=== PATIENT | female | born 1940 | race Caucasian/White ===

== ENCOUNTER → 2018-09-04 | Day surgery (SDC) | payer MEDICARE, BC ==
[~2018-09-04] MED LIST: ALPRAZolam 0.5 MG Tab.DIS (ODT) PO ONE; ALPRAZolam ODT 0.25 MG Tab ONE; Lidocaine 1% 20 ML MDV ONE
[2018-09-04 15:27] VITALS: BP 135/83
--- NOTE | 2018-09-10 10:10 | OR ---
DATE OF OPERATION: 09/04/2018 PREOPERATIVE DIAGNOSIS: SAPHENOFEMORAL INSUFFICIENCY WITH PAINFUL VARICOSITIES. POSTOPERATIVE DIAGNOSIS: SAPHENOFEMORAL INSUFFICIENCY WITH PAINFUL VARICOSITIES. SURGEON: Sagar Brown MD PROCEDURE: PAULINE, RIGHT GSV. ANESTHESIA: Local with tumescent. COMPLICATIONS: None. SPECIMEN: None. FINDINGS: Successful PAULINE, right GSV. INDICATIONS: The patient has documented saphenofemoral insufficiency. She has been having progressive symptomatic varicose veins in her lower extremity, and she elects to proceed with endovenous ablation. DESCRIPTION OF PROCEDURE: The patient was brought to the operating room suite and the insufficient saphenous vein mapped via ultrasound and diagrammed along the overlying skin along with the access site just below the knee. The entire limb was prepped and draped in sterile fashion. The patient was placed in reverse Trendelenburg position. Local anesthesia was instilled over the access site. The vein was accessed using ultrasound guidance and the Seldinger technique with a guidewire introduced through a needle. After the needle was removed, a small incision was made with an 11 blade scalpel. A 6-[place] sheath was then introduced over the guidewire and kept in place by skin tension. The guidewire was removed. The sheath was flushed and radiofrequency probe was placed into the vein through the sheath and positioned approximately 2.05 cm distal to the saphenofemoral junction. Once probe position was verified via ultrasound, tumescent anesthesia was infiltrated into the perivenous compartment from the entry site into the saphenofemoral junction achieving a halo effect around the vein. The patient was then placed in Trendelenburg position to exsanguinate the superficial venous system. Radiofrequency probe position was confirmed with ultrasound and under direct external compression along the length of the heating element, radiofrequency energy was applied. The vein was segmentally ablated heating a 7 cm segment and indexing the catheter forward 6.5 cm until treatment length complete. Device temperature was kept at 120 degrees Celsius with an initial power level of 40 t[place] dropping to below 20 for each treatment. Total radiofrequency treatment time was 3 minutes with 9 cycles. A total of 450 mL of tumescent was used. The catheter and the sheath were withdrawn and hemostasis was achieved with direct pressure. A repeat ultrasound confirmed successful treatment. The leg was then wrapped with compression from the level of the foot to the groin. The patient was stable in the recovery room. MJP/MODL /[id number]
== END ==
LOC: CC.SDS 10:13
PROVIDERS: ATTEND Family Medicine
DX: I83.811 Varicose veins of right lower extremity with pain (principal); I87.2 Venous insufficiency (chronic) (peripheral)
CPT/HCPCS: 36475; A4216; A9270-GY

== ENCOUNTER → 2018-09-11 | Day surgery (SDC) | payer MEDICARE, BC ==
[~2018-09-11] MED LIST changes: -ALPRAZolam ODT 0.25 MG Tab ONE; +ALPRAZolam ODT 0.25 MG Tab PO ONE
--- NOTE | 2018-09-11 14:20 | OR ---
DATE OF OPERATION: 09/11/2018 PREOPERATIVE DIAGNOSIS: 1. SAPHENOFEMORAL INSUFFICIENCY. 2. VENOUS INSUFFICIENCY WITH DOCUMENTED PAINFUL VARICOSITIES. POSTOPERATIVE DIAGNOSIS: 1. SAPHENOFEMORAL INSUFFICIENCY. 2. VENOUS INSUFFICIENCY WITH DOCUMENTED PAINFUL VARICOSITIES. SURGEON: Sagar Brown MD PROCEDURE: ECA, LEFT GSV. ANESTHESIA: Local with tumescent. COMPLICATIONS: None. SPECIMEN: None. FINDINGS: Successful PAULINE, left GSV. INDICATIONS: The patient has documented insufficiency in her saphenofemoral junction. She has progressively worsening painful varicosities. We elected proceed with ablation. DESCRIPTION OF PROCEDURE: The patient was brought to the operating room suite and the insufficient saphenous vein mapped via ultrasound and diagrammed on the overlying skin along with the access site just at the level of the knee. The entire limb was prepped and draped in sterile fashion. The patient was placed in reverse Trendelenburg position. Local anesthesia was instilled at the access site near the knee. The vein was accessed using ultrasound guidance and the Seldinger technique, a guidewire was introduced through the needle. The needle was removed. A small incision was made with an 11 blade scalpel. We then placed a 6-[place]amaz[place] sheath over the guidewire and inserted into the vein without complication. The guidewire was removed. The sheath was flushed. The radiofrequency probe was then placed into the sheath and positioned approximately 2.1 cm distal to the saphenofemoral junction using ultrasound guidance. After probe position was verified via ultrasound, tumescent anesthesia was infiltrated into the perivenous compartment along the length of the vein from the entry site up into the saphenofemoral junction achieving a nice halo effect around the vein. The patient was placed back in Trendelenburg position to exsanguinate the superficial system. Once probe position again confirmed via ultrasound and with direct external compression along the length of the heating element, radiofrequency energy was applied. The vein was segmentally ablated heating a 7 cm segment indexing the catheter forward 6.5 cm until treatment length complete. Device temperature was kept at 120 degrees Celsius with an initial power level of 40 [place] dropping to below 20 for each treatment. Total radiofrequency treatment time was 2 minutes and 20 seconds with 7 radiofrequency cycles. We did use a total of 450 mL of tumescent. Repeat ultrasound confirmed successful treatment. The catheter and sheath were withdrawn and hemostasis was achieved with direct pressure. Once after assuring hemostasis, the skin incision over the saphenous vein was closed with a bandage and compression wrap was applied from the level of the foot to the groin. The patient was stable in the recovery room. ANKIT/PEDRO LUIS /[id number]
[2018-09-11 15:05] VITALS: BP 132/78
== END ==
LOC: CC.SDS 10:11
PROVIDERS: ATTEND Family Medicine
DX: I83.812 Varicose veins of left lower extremity with pain (principal); I73.9 Peripheral vascular disease, unspecified
CPT/HCPCS: A9270-GY

== ENCOUNTER → 2019-01-08 | Day surgery (SDC) | payer MEDICARE, BC ==
[~2019-01-08] MED LIST changes: -ALPRAZolam 0.5 MG Tab.DIS (ODT) PO ONE; +ALPRAZolam ODT 0.25 MG Tab ONE
[2019-01-08 22:06] VITALS: PULSE 87
[2019-01-09 09:51] VITALS: BP 141/68
== END ==
LOC: CC.SDS 10:14
PROVIDERS: ATTEND Family Medicine
DX: I87.2 Venous insufficiency (chronic) (peripheral) (principal); I83.811 Varicose veins of right lower extremity with pain; K21.9 Gastro-esophageal reflux disease without esophagitis; I10 Essential (primary) hypertension; E78.5 Hyperlipidemia, unspecified; E03.9 Hypothyroidism, unspecified; M19.90 Unspecified osteoarthritis, unspecified site; Z88.5 Allergy status to narcotic agent; Z79.899 Other long term (current) drug therapy; Z79.82 Long term (current) use of aspirin
CPT/HCPCS: 36475; A9270; A4216

== ENCOUNTER → 2019-01-14 | Day surgery (SDC) | payer MEDICARE, BC ==
[2019-01-14 15:40] VITALS: BP 133/75; PULSE 65
== END ==
LOC: CC.SDS 10:09
PROVIDERS: ATTEND Family Medicine
DX: I87.2 Venous insufficiency (chronic) (peripheral) (principal); I83.811 Varicose veins of right lower extremity with pain; Z88.5 Allergy status to narcotic agent
CPT/HCPCS: 36475; A4216; A9270

== ENCOUNTER → 2019-12-19 | Day surgery (SDC) | payer MEDICARE ==
[~2019-12-19] MED LIST changes: -ALPRAZolam ODT 0.25 MG Tab ONE; -ALPRAZolam ODT 0.25 MG Tab PO ONE; +Ketamine 200 MG/20 ML MDV IV ONE; +Midazolam 1 MG/ML 2 ML SDV IV ONE; +Ondansetron 4 MG/2 ML SDV IV ONE; +Propofol 200 MG/20 ML SDV IV ONE; +fentaNYL 100 MCG/2 ML SDV IV ONE
[2019-12-19] MEDS: Lactated Ringers 1,000 ML IV SCH (10:25)
[2019-12-19 12:16] VITALS: BP 154/78; PULSE 63
--- NOTE | 2020-01-16 14:53 | OR ---
DATE OF OPERATION: 12/19/2019 PREOPERATIVE DIAGNOSIS: GANGLION CYST, RIGHT INDEX FINGER. POSTOPERATIVE DIAGNOSIS: GANGLION CYST, RIGHT INDEX FINGER. SURGEON: Rene Wynne MD PROCEDURE: EXCISION OF A GANGLION CYST, RIGHT DISTAL INTERPHALANGEAL JOINT OF THE INDEX FINGER. CYST MEASURES APPROXIMATELY 0.5 CM IN DIAMETER. ANESTHESIA: Local plus MAC. SPECIMEN: Cyst. INDICATIONS: This 79-year-old female has a large cyst on the distal interphalangeal joint of the index finger, right hand. She is continually bumping this. It is large enough that it gets in the way of her dexterity. DESCRIPTION OF PROCEDURE: After adequate preparation, local was used to infiltrate an area over the skin. This was taken down to the cyst wall and the cyst wall dissected from the subcutaneous tissue. I think this cyst actually was part of the tendon sheath and I did not exactly find an opening into the distal phalangeal joint. The area, however, was sutured. The remaining tissue of the cyst was excised and the wound closed with 4-0 nylon interrupted suture. DEION/PEDRO LUIS /[id number]
== END ==
LOC: CC.SDS 08:51
PROVIDERS: ATTEND Surgery
DX: M67.441 Ganglion, right hand (principal); I10 Essential (primary) hypertension; E78.5 Hyperlipidemia, unspecified; E03.9 Hypothyroidism, unspecified; R01.1 Cardiac murmur, unspecified; K21.9 Gastro-esophageal reflux disease without esophagitis; Z88.5 Allergy status to narcotic agent; Z88.8 Allergy status to other drugs, medicaments and biological substances; Z79.899 Other long term (current) drug therapy
CPT/HCPCS: 01810; 88304; J2250; J2405; J2704; J3010; J7120

== ENCOUNTER 2021-08-27 12:05 | Emergency (ER) | payer MEDICAID, MEDICARE, OTHER ==
[2021-08-27 12:32] VITALS: PULSE 88
[2021-08-27 12:34] VITALS: BP 165/101
[2021-08-27] MEDS ORDERED: Oxymetazoline 0.05% Nasal Spray 30 ML Bottle ONE (12:45)
[2021-08-27] MEDS: Diphtheria,Pertussis(Acell),Tetanus Vaccine 0.5 ML Syringe IM ONE (18:41)
== END 2021-08-27 16:05 | disposition home or self-care (01) ==
LOC: CC.ED 12:05
DX: S02.2XXA Fracture of nasal bones, initial encounter for closed fracture (principal); R04.0 Epistaxis; K21.9 Gastro-esophageal reflux disease without esophagitis; Z88.5 Allergy status to narcotic agent; Z88.8 Allergy status to other drugs, medicaments and biological substances; Z79.899 Other long term (current) drug therapy; W18.09XA Striking against other object with subsequent fall, initial encounter; Y92.480 Sidewalk as the place of occurrence of the external cause
CPT/HCPCS: 36415; 70450; 70486; 72125; 80053; 85025; 99284; 99284-25; A9270-GY

== ENCOUNTER 2024-03-15 16:29 | Emergency (ER) | payer MEDICARE ==
[2024-03-15 18:49] VITALS: BP 124/76; PULSE 92
== END 2024-03-15 17:50 | disposition home or self-care (01) ==
LOC: CC.ED 16:29
DX: M25.562 Pain in left knee (principal); K21.9 Gastro-esophageal reflux disease without esophagitis; Z79.899 Other long term (current) drug therapy; Z88.5 Allergy status to narcotic agent
CPT/HCPCS: 73562-LT; 99283

== ENCOUNTER 2024-03-16 17:52 | Observation (INO) | payer MEDICARE ==
[2024-03-16 18:36] LABS: ALANINE AMINOTRANSFERASE,ALT 20 U/L (12-78); ALBUMIN 3.5 g/dL (3.4-5.0); ALKALINE PHOSPHATASE 100 U/L (46-116); ASPARTATE AMNIOTRANSFERASE,AST 39 U/L (15-37); BILIRUBIN TOTAL 0.3 mg/dL (0.0-1.0); BLOOD UREA NITROGEN,BUN 64 mg/dL (7-18); CALCIUM 10.3 mg/dL (8.4-10.1); CARBON DIOXIDE,CO2 29 mmol/L (21-32); CHLORIDE,CL 101 mEq/L (98-106); CREATINE KINASE,CK 912 U/L (21-215); CREATININE 2.6 mg/dL (0.6-1.0); ESTIMATED GFR 18 mL/min (>=60); GLUCOSE RANDOM 117 mg/dL (75-99); POTASSIUM,K 3.9 mEq/L (3.5-5.0); PROTEIN TOTAL,TP 7.1 g/dL (6.4-8.2); SODIUM,NA 141 mEq/L (136-145)
[2024-03-16 18:52] LABS: HEMOGLOBIN 10.9 g/dL (12.0-16.0); LYMPHOCYTES PERCENT AUTO 12.3 % (24-44); MEAN CORPUSCULAR HEMOGLOBIN 28.5 pg (27.0-32.0); MEAN CORPUSCULAR HGB CONC 32.1 g/dL (32.0-36.0); MEAN CORPUSCULAR VOLUME 88.8 fL (83.0-97.0); MONOCYTES PERCENT AUTO 11.9 % (0-10); NEUTROPHILS PERCENT AUTO 74.4 % (41-71); PLATELET COUNT,PLT 333 10^3/uL (150-400); RED BLOOD CELL COUNT 3.83 x10^6/uL (4.00-5.50); WHITE BLOOD CELL COUNT,WBC 12.6 10^3/uL (4.0-11.0)
[2024-03-16 18:53] LABS: BASOPHILS ABSOLUTE AUTO 0.02 10^3/uL (0.00-0.50); BASOPHILS PERCENT AUTO 0.2 % (0-1); EOSINOPHILS ABSOLUTE AUTO 0.11 10^3/uL (0.00-1.50); EOSINOPHILS PERCENT AUTO 0.9 % (0-6); IMMATURE GRAN ABSOLUTE AUTO 0.04 10^3/uL (0.00-0.49); IMMATURE GRAN PERCENT AUTO 0.3 % (0.0-4.9); LYMPHOCYTES ABSOLUTE AUTO 1.55 10^3/uL (0.60-5.00); NEUTROPHILS ABSOLUTE AUTO 9.35 x10^3/uL (1.80-8.00)
[2024-03-16] MEDS: Sodium Chloride 0.9% 1,000 ML IV ONE (19:19)
[2024-03-16] MEDS ORDERED: Ondansetron 4 MG/2 ML SDV IV PRN (19:46)
[2024-03-16] MEDS ORDERED: Acetaminophen 325 MG Tab PO PRN (19:46)
[2024-03-16] MEDS ORDERED: Ondansetron 4 MG Tab.DIS PO PRN (19:46)
[2024-03-16] MEDS: Sodium Chloride 0.9% 1,000 ML IV SCH (20:38)
[2024-03-16] MEDS: Gabapentin 300 MG Cap PO ONE (20:45)
[2024-03-16] MEDS: Simvastatin 20 MG Tab PO ONE (20:45)
[2024-03-16 21:30] LABS: APPEARANCE,URINE CLEAR (CLEAR); BILIRUBIN,URINE NEGATIVE (NEGATIVE); COLOR,URINE YELLOW (YELLOW); GLUCOSE,URINE NEGATIVE (NEGATIVE); KETONES,URINE NEGATIVE (NEGATIVE); LEUKOCYTE ESTERASE,URINE SMALL (NEGATIVE); NITRITE,URINE NEGATIVE (NEGATIVE); OCCULT BLOOD,URINE SMALL (NEGATIVE); PH,URINE 5.5 (4.5-8.0); PROTEIN,URINE NEGATIVE (NEGATIVE); UROBILINOGEN,URINE 0.2 EU/dL (0.2-1.0)
[2024-03-16 21:31] LABS: BACTERIA,URINE RARE /HPF (NOT SEEN); EPITHELIAL CELLS,URINE NOT SEEN /HPF (NOT SEEN); MUCUS,URINE NOT SEEN /HPF (NOT SEEN); RBC,URINE 0-5 /HPF (0-5); WBC,URINE 0-5 /HPF (0-5)
[2024-03-17 07:42] LABS: ALBUMIN 2.6 g/dL (3.4-5.0); BILIRUBIN TOTAL 0.3 mg/dL (0.0-1.0); CALCIUM 8.9 mg/dL (8.4-10.1); CREATININE 1.7 mg/dL (0.6-1.0); EST CRCL DRUG DOSING (CG) 24.41 mL/min; POTASSIUM,K 3.5 mEq/L (3.5-5.0); PROTEIN TOTAL,TP 5.4 g/dL (6.4-8.2)
[2024-03-17 08:43] LABS: BASOPHILS ABSOLUTE AUTO 0.02 10^3/uL (0.00-0.50); BASOPHILS PERCENT AUTO 0.2 % (0-1); EOSINOPHILS PERCENT AUTO 2.4 % (0-6); HEMATOCRIT 28.1 % (37.0-47.0); IMMATURE GRAN ABSOLUTE AUTO 0.02 10^3/uL (0.00-0.49); IMMATURE GRAN PERCENT AUTO 0.2 % (0.0-4.9); LYMPHOCYTES ABSOLUTE AUTO 1.44 10^3/uL (0.60-5.00); LYMPHOCYTES PERCENT AUTO 17.1 % (24-44); MEAN CORPUSCULAR HEMOGLOBIN 28.8 pg (27.0-32.0); MEAN CORPUSCULAR VOLUME 90.1 fL (83.0-97.0); MONOCYTES ABSOLUTE AUTO 1.01 10^3/uL (0.00-1.50); NEUTROPHILS ABSOLUTE AUTO 5.73 x10^3/uL (1.80-8.00); NEUTROPHILS PERCENT AUTO 68.1 % (41-71); PLATELET COUNT,PLT 255 10^3/uL (150-400); RED BLOOD CELL COUNT 3.12 x10^6/uL (4.00-5.50); WHITE BLOOD CELL COUNT,WBC 8.4 10^3/uL (4.0-11.0)
[2024-03-17] MEDS: Acetaminophen/HYDROcodone 325-5 MG Tab PO PRN (17:34)
[2024-03-17] MEDS: Sodium Chloride 0.9% 1,000 ML IV SCH (17:34)
[2024-03-17] MEDS: Loperamide 2 MG Cap PO PRN (17:50)
[2024-03-17] MEDS ORDERED: Loperamide 2 MG Cap PO PRN (19:30)
[2024-03-17] MEDS: Simvastatin 20 MG Tab PO SCH (20:05)
[2024-03-17] MEDS: Enoxaparin 30 MG/0.3 ML Syringe SUBCUT SCH (20:05)
[2024-03-17] MEDS: Gabapentin 100 MG Cap PO SCH (20:05)
[2024-03-18] MEDS: Acetaminophen/HYDROcodone 325-5 MG Tab PO PRN (02:23)
[2024-03-18] MEDS: Levothyroxine 88 MCG Tab PO SCH (06:48)
[2024-03-18] MEDS: Pantoprazole 40 MG Tab.CR PO SCH (06:48)
[2024-03-18 07:57] LABS: BASOPHILS ABSOLUTE AUTO 0.03 10^3/uL (0.00-0.50); BASOPHILS PERCENT AUTO 0.5 % (0-1); EOSINOPHILS ABSOLUTE AUTO 0.25 10^3/uL (0.00-1.50); EOSINOPHILS PERCENT AUTO 4.2 % (0-6); HEMATOCRIT 26.5 % (37.0-47.0); HEMOGLOBIN 8.5 g/dL (12.0-16.0); IMMATURE GRAN ABSOLUTE AUTO 0.02 10^3/uL (0.00-0.49); IMMATURE GRAN PERCENT AUTO 0.3 % (0.0-4.9); LYMPHOCYTES ABSOLUTE AUTO 1.28 10^3/uL (0.60-5.00); LYMPHOCYTES PERCENT AUTO 21.7 % (24-44); MEAN CORPUSCULAR HGB CONC 32.1 g/dL (32.0-36.0); MEAN CORPUSCULAR VOLUME 90.4 fL (83.0-97.0); MONOCYTES ABSOLUTE AUTO 0.71 10^3/uL (0.00-1.50); MONOCYTES PERCENT AUTO 12.1 % (0-10); NEUTROPHILS PERCENT AUTO 61.2 % (41-71); PLATELET COUNT,PLT 234 10^3/uL (150-400); RED BLOOD CELL COUNT 2.93 x10^6/uL (4.00-5.50); WHITE BLOOD CELL COUNT,WBC 5.9 10^3/uL (4.0-11.0)
[2024-03-18 08:05] LABS: ALBUMIN 2.4 g/dL (3.4-5.0); BILIRUBIN TOTAL 0.3 mg/dL (0.0-1.0); C-REACTIVE PROTEIN 2.24 mg/dL (<=0.50); CALCIUM 8.9 mg/dL (8.4-10.1); EST CRCL DRUG DOSING (CG) 41.49 mL/min; POTASSIUM,K 3.7 mEq/L (3.5-5.0); PROTEIN TOTAL,TP 5.2 g/dL (6.4-8.2)
[2024-03-18] MEDS: Celecoxib 100 MG Cap PO SCH (08:39)
[2024-03-18] MEDS: Loratadine 10 MG Tab PO SCH (08:39)
[2024-03-18] MEDS: Hydrochlorothiazide 25 MG Tab PO SCH (08:39)
[2024-03-18] MEDS: Multivitamin Tab PO SCH (08:39)
[2024-03-18] MEDS: FLUoxetine 20 MG Cap PO SCH (08:40)
[2024-03-18] MEDS: Losartan 100 MG Tab PO SCH (08:40)
[2024-03-18 13:05] VITALS: BP 147/80; PULSE 76
== END 2024-03-18 16:40 | disposition home or self-care (01) ==
LOC: CC.ED 17:52 → SUPCPDRO 17:52 → CC.MS 18:31 → UNDOADMOB 18:31 → CC.MS 19:40
PROVIDERS: ADMIT Physician Assistant Medical; ATTEND Physician Assistant Medical
DX: N17.9 Acute kidney failure, unspecified (principal); M25.562 Pain in left knee; W18.30XA Fall on same level, unspecified, initial encounter; Z79.899 Other long term (current) drug therapy
CPT/HCPCS: 36415; 80053; 81001; 82550; 85025; 86140; 96360; 96361; 96372; 97161-GP; 99223; 99233; 99238; 99285; A9270-GY; G0378; J1650; J7030

== ENCOUNTER 2024-09-17 13:06 | Emergency (ER) | payer MEDICARE, MEDICAID ==
[2024-09-17 13:31] VITALS: BP 158/89; PULSE 69
[2024-09-17] MEDS: Meclizine 12.5 MG Tab PO ONE (13:32)
== END 2024-09-17 15:16 | disposition home or self-care (01) ==
LOC: CC.ED 13:06
DX: I11.0 Hypertensive heart disease with heart failure (principal); I50.9 Heart failure, unspecified; Z88.8 Allergy status to other drugs, medicaments and biological substances; Z79.899 Other long term (current) drug therapy; Z79.890 Hormone replacement therapy
CPT/HCPCS: 70450; 72125; 73030-LT; 99284; A9270-GY

== ENCOUNTER 2024-12-13 13:03 | Emergency (ER) | payer MEDICARE, MEDICAID ==
[2024-12-13] MEDS: fentaNYL 50 MCG/ML SDV IVPUSH ONE (13:59)
[2024-12-13 15:00] LABS: BASOPHILS ABSOLUTE AUTO 0.02 10^3/uL (0.00-0.50); BASOPHILS PERCENT AUTO 0.1 % (0-1); EOSINOPHILS ABSOLUTE AUTO 0.28 10^3/uL (0.00-1.50); EOSINOPHILS PERCENT AUTO 2.0 % (0-6); IMMATURE GRAN ABSOLUTE AUTO 0.12 10^3/uL (0.00-0.49); IMMATURE GRAN PERCENT AUTO 0.8 % (0.0-4.9); LYMPHOCYTES ABSOLUTE AUTO 1.55 10^3/uL (0.60-5.00); LYMPHOCYTES PERCENT AUTO 10.8 % (24-44); MONOCYTES ABSOLUTE AUTO 0.94 10^3/uL (0.00-1.50); MONOCYTES PERCENT AUTO 6.6 % (0-10); NEUTROPHILS ABSOLUTE AUTO 11.44 x10^3/uL (1.80-8.00); NEUTROPHILS PERCENT AUTO 79.7 % (41-71); PLATELET COUNT,PLT 256 10^3/uL (150-400); RED BLOOD CELL COUNT 3.67 x10^6/uL (4.00-5.50); WHITE BLOOD CELL COUNT,WBC 14.4 10^3/uL (4.0-11.0)
[2024-12-13 15:01] LABS: APPEARANCE,URINE CLEAR (CLEAR); GLUCOSE,URINE NEGATIVE (NEGATIVE); OCCULT BLOOD,URINE NEGATIVE (NEGATIVE)
[2024-12-13 15:19] LABS: ALANINE AMINOTRANSFERASE,ALT 29.0 U/L (12-78); ASPARTATE AMNIOTRANSFERASE,AST 23.0 U/L (15-37); BILIRUBIN TOTAL 0.6 mg/dL (0.0-1.0); BLOOD UREA NITROGEN,BUN 48.0 mg/dL (7-18); CARBON DIOXIDE,CO2 29.0 mmol/L (21-32); CHLORIDE,CL 102.0 mEq/L (98-106); CREATININE 1.4 mg/dL (0.6-1.0); EST CRCL DRUG DOSING (CG) 27.0 mL/min; ESTIMATED GFR 37.0 mL/min (>=60); GLUCOSE RANDOM 92.0 mg/dL (75-99); POTASSIUM,K 4.2 mEq/L (3.5-5.0); PROTEIN TOTAL,TP 7.0 g/dL (6.4-8.2); SODIUM,NA 142.0 mEq/L (136-145)
[2024-12-13] MEDS: Magnesium Sulfate 2 GM/50 mL 2 GM in Premix Bag 1 BAG IV ONE (15:53)
[2024-12-13 17:48] VITALS: BP 153/86; PULSE 88
== END 2024-12-13 17:50 ==
LOC: CC.ED 13:03
DX: S72.051A Unspecified fracture of head of right femur, initial encounter for closed fracture (principal); E83.42 Hypomagnesemia; I11.0 Hypertensive heart disease with heart failure; I50.9 Heart failure, unspecified; K21.9 Gastro-esophageal reflux disease without esophagitis; E78.00 Pure hypercholesterolemia, unspecified; E03.9 Hypothyroidism, unspecified; Z88.5 Allergy status to narcotic agent; Z88.8 Allergy status to other drugs, medicaments and biological substances; Z79.890 Hormone replacement therapy; Z79.899 Other long term (current) drug therapy; W01.198A Fall on same level from slipping, tripping and stumbling with subsequent striking against other object, initial encounter
CPT/HCPCS: 36415; 73030-RT; 80053; 81003; 83735; 85025; 93005; 96365; 96366; 96375; 99285-25; J3010; J3475

== ENCOUNTER 2025-03-07 15:15 | Emergency (ER) | payer MEDICARE, BC, MEDICAID ==
[2025-03-07 15:25] VITALS: BP 130/71; PULSE 88
[2025-03-07 16:12] LABS: BASOPHILS ABSOLUTE AUTO 0.02 10^3/uL (0.00-0.50); BASOPHILS PERCENT AUTO 0.3 % (0-1); EOSINOPHILS ABSOLUTE AUTO 0.13 10^3/uL (0.00-1.50); EOSINOPHILS PERCENT AUTO 2.0 % (0-6); IMMATURE GRAN ABSOLUTE AUTO 0.01 10^3/uL (0.00-0.49); IMMATURE GRAN PERCENT AUTO 0.2 % (0.0-4.9); LYMPHOCYTES ABSOLUTE AUTO 1.37 10^3/uL (0.60-5.00); LYMPHOCYTES PERCENT AUTO 20.8 % (24-44); MONOCYTES ABSOLUTE AUTO 0.68 10^3/uL (0.00-1.50); MONOCYTES PERCENT AUTO 10.3 % (0-10); NEUTROPHILS ABSOLUTE AUTO 4.38 x10^3/uL (1.80-8.00); NEUTROPHILS PERCENT AUTO 66.4 % (41-71); PLATELET COUNT,PLT 316 10^3/uL (150-400); RED BLOOD CELL COUNT 3.87 x10^6/uL (4.00-5.50); WHITE BLOOD CELL COUNT,WBC 6.6 10^3/uL (4.0-11.0)
[2025-03-07 16:25] LABS: ALANINE AMINOTRANSFERASE,ALT 18 U/L (12-78); ASPARTATE AMNIOTRANSFERASE,AST 17 U/L (15-37); BILIRUBIN TOTAL 0.4 mg/dL (0.0-1.0); BLOOD UREA NITROGEN,BUN 33 mg/dL (7-18); CARBON DIOXIDE,CO2 27 mmol/L (21-32); CHLORIDE,CL 101 mEq/L (98-106); CREATININE 1.4 mg/dL (0.6-1.0); EST CRCL DRUG DOSING (CG) 25.95 mL/min; ESTIMATED GFR 37 mL/min (>=60); GLUCOSE RANDOM 108 mg/dL (75-99); POTASSIUM,K 4.5 mEq/L (3.5-5.0); PROTEIN TOTAL,TP 6.7 g/dL (6.4-8.2); SODIUM,NA 138 mEq/L (136-145)
[2025-03-07 16:28] LABS: LACTIC ACID 0.3 mmol/L (0.4-2.0)
[2025-03-07 16:35] LABS: APPEARANCE,URINE CLEAR (CLEAR); GLUCOSE,URINE NEGATIVE (NEGATIVE); OCCULT BLOOD,URINE NEGATIVE (NEGATIVE)
[2025-03-07 16:42] LABS: INR 1.01 (0.92-1.18); PTT,PARTIAL THROMBOPLSTIN TIME 26.2 SEC (20.0-30.0)
[2025-03-07 16:42] LABS: EPITHELIAL CELLS,URINE FEW /HPF (NOT SEEN)
[2025-03-07] MEDS: Ondansetron 4 MG Tab.DIS PO ONE (16:49)
== END 2025-03-07 16:57 | disposition home or self-care (01) ==
LOC: CC.ED 15:15
DX: R11.2 Nausea with vomiting, unspecified (principal); N39.0 Urinary tract infection, site not specified; E83.42 Hypomagnesemia; I11.0 Hypertensive heart disease with heart failure; I50.9 Heart failure, unspecified; E78.00 Pure hypercholesterolemia, unspecified; E03.9 Hypothyroidism, unspecified; K21.9 Gastro-esophageal reflux disease without esophagitis; Z87.891 Personal history of nicotine dependence; Z79.899 Other long term (current) drug therapy; Z88.8 Allergy status to other drugs, medicaments and biological substances; Z88.5 Allergy status to narcotic agent; Z79.890 Hormone replacement therapy
CPT/HCPCS: 36415; 80053; 81001; 83605; 83735; 85025; 85610; 85730; 86140; 93005; 99284; A9270-GY